=== PATIENT | male | born 1960 | race Caucasian/White ===

== ENCOUNTER → 2021-09-10 | Outpatient (CLI) | payer OTHER ==
--- NOTE | 2021-09-12 06:20 | PE ---
EXAMINATION TYPE: PET CT fusion skull to thigh DATE OF EXAM: 09/10/2021 COMPARISON: NONE HISTORY: Solitary pulmonary nodule TECHNIQUE: Following the intravenous administration of 12.1 mCi of F-18 FDG, whole body images are p erformed from the skull base to the midthigh. Images are reviewed on the computer in the coronal, ax ial, and sagittal planes. Reconstructed rotating images are created on independent workstation and r eviewed on the computer. A localization and attenuation correction CT is performed in conjunction w ith the PET scan. Blood glucose level equals 128. SCAN: Initial Scan FINDINGS: SKULL BASE AND NECK: No areas of abnormal hypermetabolic uptake. CHEST, MEDIASTINUM, AND HILAR REGION: There is 2.1 x 1.8 cm thick-walled cavitary lesion right suprah ilar level having abnormal hypermetabolic uptake, Max SUV is 4.82. No additional areas of abnormal hypermetabolic uptake. ABDOMEN AND PELVIS: No adrenal masses. Normal excretion. No areas of abnormal hypermetabolic uptake. OSSEOUS STRUCTURES: No areas of abnormal hypermetabolic uptake. OTHER CT: Moderate to severe mucosal thickening right maxillary sinus. Calcified right hilar and subc arinal lymph nodes. Calcifications throughout the spleen. Above Findings consistent with product of o ld granulomatous disease. Liver is diffusely low dense consistent with diffuse fatty infiltration. Mildly enlarged prostate con sistent with BPH. Moderate-size fat-containing left inguinal hernia. IMPRESSION: There is 2.1 cm hypermetabolic cavitary lesion, differential includes neoplasm. Other anca ologies not excluded. No suspicious adenopathy or metastatic disease seen.
== END | disposition home or self-care (01) ==
LOC: RADPETMAIN 09:00
PROVIDERS: ATTEND Internal Medicine
DX: R91.8 Other nonspecific abnormal finding of lung field (principal)
CPT/HCPCS: 78815; A9552

== ENCOUNTER → 2022-01-09 | Outpatient (CLI) | payer OTHER | END | disposition home or self-care (01) | LOC: LABWHC1 10:54 | PROVIDERS: ATTEND Internal Medicine Critical Care Medicine | DX: R91.8 Other nonspecific abnormal finding of lung field (principal) | CPT/HCPCS: 36415 ==

== ENCOUNTER 2022-01-19 11:33 | Day surgery (SDC) | payer OTHER ==
[~2022-01-19 11:33] MED LIST: ALBUTEROL NEB (CONC) 2.5 MG/0.5 ML INHALATION ONE; LIDOCAINE 2% (PF) 20 MG/ML 5 ML VIAL INHALATION ONE; LIDOCAINE VISCOUS 300 MG/15 ML CUP MUCOUS MEM ONE; SODIUM CHLORIDE 0.9% 1,000 ML IV SCH
--- NOTE | 2022-01-19 12:57 | CT ---
EXAMINATION TYPE: CT Chest elizabeth Talbot Protocol DATE OF EXAM: 01/19/2022 COMPARISON: 09/10/2021 HISTORY: Navigational bronchoscopy CT DLP: 907 mGycm Automated exposure control for dose reduction was used. FINDINGS: Limited exam is part of a navigational bronchoscopy preprocedural planning. 2.1 x 1.8 cm thick-walled cavitary lesion right suprahilar level is stable. Edematous changes are see n. There is a 6 mm nodule seen within the right upper lobe just posterior to the right hilum axial im age 24. Biapical pleural thickening is seen. There is no evidence of focal pneumonia or pleural effus ion. No pneumothorax. 4 mm calcified granuloma right lower lobe. Heart size is normal. Coronary artery calcification noted. Atherosclerotic change aorta with no evide nce of aneurysm. There is a pathologic-sized pretracheal lymph node on the right axial image 23 measu ring short axis I.4 cm. The calcified hilar and mediastinal lymph nodes incidentally noted. Hepatic steatosis suggested with evidence of hepatic and splenic granuloma. Minimal thickening to the anterior limb of the left adrenal gland nonspecific. Hypertrophic and degenerative changes of the sp ine. Chronic rib deformities are seen suggestive of remote trauma. IMPRESSION: 1. There is a stable 2.1 cm cavitary lesion of the right hilum. 6 mm nodule seen posteriorly within t he upper lobe on the right. Additionally there is pathologic right hilar adenopathy measuring short a xis of 1.4 cm. 2. coronary artery calcification correlate clinically. 3. COPD.
[2022-01-19] MEDS ORDERED: ROCURONIUM 10 MG/ML (5 ML VIAL) IV ONE (14:19)
[2022-01-19] MEDS ORDERED: fentaNYL (PF) 50 MCG/ML 2 ML AMP ONE (14:19)
[2022-01-19] MEDS ORDERED: MIDAZOLAM 2 MG/2 ML VIAL ONE (14:19)
[2022-01-19] MEDS ORDERED: LIDOCAINE 2% INJ 20 MG/ML (2 ML VIAL) ONE (14:19)
[2022-01-19] MEDS ORDERED: KETAMINE 10 MG/ML 20 ML VIAL ONE (14:19)
[2022-01-19] MEDS ORDERED: SUCCINYLCHOLINE CHLORIDE 200 MG/10 ML VIAL IV ONE (14:19)
[2022-01-19] MEDS ORDERED: PROPOFOL 10 MG/ML 20 ML VIAL IV ONE (14:19)
[2022-01-19] MEDS ORDERED: SODIUM CHLORIDE 0.9% 500 ML 500 ML IV ONE (15:30)
--- NOTE | 2022-01-19 15:34 | P.PCN ---
Date of Procedure: 01/19/22 Operative Findings: Preoperative Diagnosis: Right upper lobe lobe mass Postoperative Diagnosis: Right upper lobe mass Procedure(s) Performed: Flexible bronchoscopy navigation bronchoscopy Transbronchial biopsy of the right upper lobe mass, transbronchial brushing of the right upper lobe mass, transbronchial needle aspirate of the right upper lobe mass, bronchioloalveolar lavage of the right upper lobe Endobronchial ultrasound Anesthesia: GETA Operative Findings: Surgeon: Constantino Herndon MD Road Inspector #1: Adenike Juarez Estimated Blood Loss (ml): 0 Pathology: other Condition: stable Disposition: same day Operative Findings: the patient is a 61 -year-old male with a right upper lobe mass which was active on a PET/CT. The right upper lobe mass causing narrowing of the right upper lobe bronchus and there was some central cavitation based on the CAT scan and the PET/CT. The patient is scheduled to undergo navigation bronchoscopy and endobronchial ultrasound to evaluate mediastinal lymph nodes. A CAT scan of the chest was done for mapping purposes using the [employer] protocol. The images was uploaded into the system and the right lower lobe mass was identified. Appropriate mapping was done. All of this information was then transferred to a USB and later on into the [employer] navigation tower. After obtaining the consent the patient was taken to the OR suite he was intubated and put on MV by anesthesia then the scope was advanced to the ET tube until the Trachea was seen and it was normal and then the eliud appears normal then the scope advanced to the left main and MAX LB1-LB3 were seen and no endobronchial lesions were seen then the scope advanced to the lingula and the LB4 and LB5 were seen and no endobronchial lesions were seen the scope retracted and advanced to the left lower lobes LB6 to LB12 were seen one by one and no endobronchial lesions, then the scope was retracted back to the eliud and advanced to the Right main in the right mainstem bronchus was within normal limits. Immediately, at the origin of the right upper lobe bronchus, there was significant narrowing of the right upper lobe bronchus along with endobronchial tumor growing circumferentially around the airway more so in the posterior lateral wall. The mucosa was friable and erythematous and irregular and it had vascular structures were easily bleeding along its surface. The various segments of the right upper lobe were not accurately visualized. I was not able to see the apical anterior and the posterior segment of the right upper lobe. There was considerable amount of narrowing due to endobronchial tumor growing circumferentially.The scope then retracted and advanced to the BI and RML RB4 and RB5 were seen and no endobronchial lesions were seen then it was retracted and advanced to the RLL RB6 to RB12 were seen one by one and no endobronchial lesions. There was extensive mucosal irregularities and calcification of the cartilaginous rings causing indentation and ridges with the airways. . The anatomy was distoreted, yet were were able ti identify all of the segments and the subsegments on both sides. Then EBUS was used and the lymph nodes were examined. Direct measurement of the mediastinal lymph nodes revealed no significant mediastinal lymphadenopathy. The subcarinal lymph node was less than 5 mm in size. No paratracheal station 4R, 10 R, 11 R lymph nodes were seen. As such, mediastinal lymph nodes were not sampled. . Using navigation guidance, the flexible bronchoscope was advanced to the right upper lobe. Transbronchial biopsy of the right upper lobe mass was done in multiple passes were obtained. Following that, performed transbronchial brushing of the right upper lobe mass using a triple brush, transbronchial needle aspirate using a 21-gauge needle of th right upper lobe mass was done. No complications and there was no bleeeding. following that, a bronchial lavage of the right upper lobe was done. A total of 60 mL of fluid was infused and 15 mL was suctioned back without any complication. Aspirate was bloody. The procedure was terminated. The bronchoscope was removed. The patient was extubated and following that the patient was transferred to recovery in a stable condition. No bifid, occasional bleeding. A chest x-ray to follow and if no complications the patient will be discharged home.
[2022-01-19 15:44] VITALS: RESP 16; TEMP 97.8
[2022-01-19 16:16] VITALS: PULSE 64
[2022-01-19 16:27] VITALS: BP 113/71
[2022-01-20 01:19] LABS: Appearance,BF Bloody
== END 2022-01-19 16:35 | disposition home or self-care (01) ==
LOC: ORWHC2ENDO 11:33
PROVIDERS: ATTEND Internal Medicine Critical Care Medicine
DX: R91.8 Other nonspecific abnormal finding of lung field (principal); I10 Essential (primary) hypertension; J44.9 Chronic obstructive pulmonary disease, unspecified; F12.90 Cannabis use, unspecified, uncomplicated; F17.200 Nicotine dependence, unspecified, uncomplicated; K21.9 Gastro-esophageal reflux disease without esophagitis; Z79.51 Long term (current) use of inhaled steroids; Z79.899 Other long term (current) drug therapy
CPT/HCPCS: 87798 ×3; 87496; 87498; 87529; 88104; 88108; 88305; 88173; 89050; 88342; 87252; 87502; 87634; 88341; 87070; 87205; 87116; 87102; 87206; 71250; 31629; 31625; 31624; 31627; 31652; J2250; J0330; J3010; J2704; J2001; 31623

== ENCOUNTER → 2022-02-03 | Outpatient (CLI) | payer OTHER ==
--- NOTE | 2022-02-05 00:16 | PE ---
EXAMINATION TYPE: PET CT fusion skull to thigh DATE OF EXAM: 02/03/2022 CLINICAL INDICATION:Male, 61 years old with history of R91.1; TECHNIQUE: Following the intravenous administration of 13.0 mCi of F-18 FDG, whole body images are performed from the skull base to the midthigh. Images are reviewed on the computer in the coronal, a xial, and sagittal planes. Reconstructed rotating images are created on independent workstation and reviewed on the computer. A non-contrast CT is performed in conjunction with the PET scan. Glucose level 101 mg/dL COMPARISON: CT 01/19/2022, CT 12/21/2021, PET/CT 09/10/2021, FINDINGS: Mediastinal SUV mean is 1.6. Hepatic parenchyma SUV mean is 1.9. SKULL BASE AND NECK: No suspicious radiotracer activity. CHEST, MEDIASTINUM, AND HILAR REGION: * Similar morphology to the cavitating right perihilar lesion when compared to prior on 12/21/2021. T his has max SUV 7.2, previously 4.8. Area measures roughly 2.8 x 2.4 cm given limitations of noncontr ast technique. * No suspicious metabolic activity within the mediastinal lymph nodes. ABDOMEN AND PELVIS: No suspicious radiotracer activity. OSSEOUS STRUCTURES: No suspicious radiotracer activity. OTHER CT: Atherosclerosis of the arterial vasculature including the carotid bifurcations and coronary arteries. Heart is mildly enlarged for size. Hepatic steatosis. Calcified granulomas within the sple en. IMPRESSION: Progressive disease with increasing metabolic activity of the right perihilar cavitating lesion zoë red to 09/10/2021, there is a similar morphology to most recent prior 12/21/2021 CT.
== END | disposition home or self-care (01) ==
LOC: RADPETMAIN 12:34
PROVIDERS: ATTEND Internal Medicine Critical Care Medicine
DX: R91.1 Solitary pulmonary nodule (principal)
CPT/HCPCS: 78815; A9552

== ENCOUNTER → 2022-02-21 | Outpatient (CLI) | payer OTHER ==
[2022-02-21 12:49] LABS: Partial Thromboplastin Time 27.5 sec (22.0-30.0); Prothrombin Time 10.5 sec (9.0-12.0)
[2022-02-21 18:39] LABS: Basophils # (A) 0.05 X 10*3/uL (0.00-0.10); Basophils % (A) 0.6 %; Eosinophils # (A) 0.03 X 10*3/uL (0.04-0.35); Eosinophils % (A) 0.4 %; HCT 46.3 % (39.6-50.0); HGB 15.7 g/dL (13.0-17.0); Immature Grans, Automated 0.3 %; Lymphocytes # (A) 1.69 X 10*3/uL (0.90-5.00); Lymphocytes % (A) 21.2 %; MCH 33.3 pg (27.0-32.0); MCHC 33.9 g/dL (32.0-37.0); MCV 98.3 fL (80.0-97.0); Mean Platelet Volume 9.1 fL (9.5-12.2); Monocytes # (A) 0.71 X 10*3/uL (0.20-1.00); Monocytes % (A) 8.9 %; NRBC Per 100 WBC 0 /100 WBCS (0.0-0.0); Neutrophils # (A) 5.47 X 10*3/uL (1.80-7.70); Neutrophils % (A) 68.6 %; Platelet Count 247 X 10*3/uL (140-440); RBC 4.71 X 10*6/uL (4.40-5.60); RDW 12.2 % (11.5-14.5); WBC 7.97 X 10*3/uL (4.50-10.00)
[2022-02-21 20:05] LABS: African American GFR (CKD) 111.7 (60.0-200.0); Anion Gap 13.5 mmol/L (10.00-18.00); Blood Urea Nitrogen 9.3 mg/dL (9.0-27.0); Carbon Dioxide 23.5 mmol/L (20.0-27.5); Non-African American GFR(CKD) 96.4 (60.0-200.0); Potassium 4.2 mmol/L (3.5-5.5)
== END | disposition home or self-care (01) ==
LOC: LABPAT 10:53
PROVIDERS: ATTEND Thoracic Surgery (Cardiothoracic Vascular Surgery)
DX: Z01.818 Encounter for other preprocedural examination (principal); C34.00 Malignant neoplasm of unspecified main bronchus; I51.7 Cardiomegaly; R53.83 Other fatigue; R58 Hemorrhage, not elsewhere classified; R94.31 Abnormal electrocardiogram [ECG] [EKG]; Z79.899 Other long term (current) drug therapy
CPT/HCPCS: 80051; 82565; 82947; 84520; 85025; 85610; 85730; 93005

== ENCOUNTER 2022-02-23 06:03 | Inpatient (IN) | payer OTHER ==
[2022-02-23] MEDS ORDERED: DEXAMETHASONE SOD PHOSPHATE 4 MG/ML 1 ML VIAL IV ONE (06:11)
[2022-02-23] MEDS ORDERED: LIDOCAINE 1% (10MG/ML) FOR IV START INTRADERMA PRN (06:11)
[2022-02-23] MEDS ORDERED: ONDANSETRON 4 MG/2 ML VIAL IVP ONE (06:11)
[2022-02-23] MEDS: LACTATED RINGERS 1,000 ML IV SCH (06:35)
[2022-02-23] MEDS ORDERED: HYDROmorphone 0.5 MG/0.5 ML SYRINGE IVP PRN (07:00)
[2022-02-23] MEDS ORDERED: MIDAZOLAM 2 MG/2 ML VIAL IV ONE (07:18)
[2022-02-23] MEDS ORDERED: WATER FOR INJECTION, STERILE 10 ML VIAL IV ONE (08:00)
[2022-02-23] MEDS ORDERED: ROPIVACAINE 5 MG/ML 30 ML VIAL ONE (08:00)
[2022-02-23] MEDS ORDERED: ROCURONIUM 10 MG/ML (5 ML VIAL) IV ONE (08:00)
[2022-02-23] MEDS ORDERED: LIDOCAINE 2% INJ 20 MG/ML (2 ML VIAL) ONE (08:00)
[2022-02-23] MEDS ORDERED: KETAMINE 10 MG/ML 20 ML VIAL ONE (08:00)
[2022-02-23] MEDS ORDERED: SODIUM CHLORIDE 0.9% (PF) 10 ML VIAL ONE (08:00)
[2022-02-23] MEDS ORDERED: fentaNYL (PF) 50 MCG/ML 2 ML AMP ONE (08:00)
[2022-02-23] MEDS ORDERED: GLYCOPYRROLATE 0.2 MG/ML 2 ML VIAL ONE (08:00)
[2022-02-23] MEDS ORDERED: ePHEDrine 50 MG/ML 1 ML VIAL ONE (08:00)
[2022-02-23] MEDS ORDERED: NEOSTIGMINE 1 MG/ML 10 ML VIAL ONE (08:00)
[2022-02-23] MEDS ORDERED: PROPOFOL 10 MG/ML 20 ML VIAL IV ONE (08:00)
[2022-02-23] MEDS ORDERED: SUCCINYLCHOLINE CHLORIDE 200 MG/10 ML VIAL IV ONE (08:00)
[2022-02-23] MEDS ORDERED: DEXAMETHASONE SOD PHOSPHATE 4 MG/ML 1 ML VIAL ONE (08:00)
[2022-02-23] MEDS ORDERED: PHENYLEPHRINE-0.9% NACL SYG 1,000 MCG/10 ML SYRINGE ONE (08:00)
[2022-02-23] MEDS ORDERED: HYDROmorphone (PF) 1 MG/ML ONE (08:00)
[2022-02-23] MEDS ORDERED: LACTATED RINGERS 1,000 ML IV ONE (09:50)
--- NOTE | 2022-02-23 10:45 | P.ANPRN ---
Procedure Note - Anesthesia - Nerve Block Performed Right Erector Spinae Single Time Out Performed: Yes Date of Procedure: 02/23/22 Procedure Start Time: :18 Procedure Stop Time: : Location of Patient: PreOp Indication: Acute Post-Operative Pain, Requested by Surgeon Sedation Type: Sedate with meaningful contact maintained Preparation: Sterile Prep Position: Prone Needle Types: Pajunk Needle Gauge: 21 Ultrasound used to visualize needle placement: Yes Ultrasound used to observe medication spread: Yes Blood Aspirated: No Pain Paresthesia on Injection Noted: No Resistance on Injection: Normal Image Stored and Saved: Yes Events: Uneventful and Well Tolerated (Ropivacaine 0.5% 15 mL plus normal saline 10 mL plus dexamethasone 4 mg)
--- NOTE | 2022-02-23 11:43 | P.OP ---
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 Lymph nodes stations R4, R5, R8, R 10, R 11, level 7.) Condition: stable Disposition: PACU Indications for Procedure: 62-year-old male with documented squamous cell carcinoma of the right upper lobe. He is [place] extensive workup in [place] but never got referred for surgery. This included PET scan and he missed. These demonstrated fairly central right upper lobe tumor with involvement of the [place] right upper lobe bronchus and possible involvement of the right mainstem bronchus. Lymph nodes were negative by ZEENAT and estefanía. Patient came to see us as a second opinion and was scheduled for surgery. He is ECOG level is 0. Operative Findings: On bronchoscopy didn't appear to extend to the proximal right upper lobe bronchus but did not grossly involve the mainstem bronchus. At exploration, the tumor was densely adherent and possibly infiltrative of the azygos vein. It was fairly central, sitting just above the hilum. We were able to dissected out the hilar structures to would from the upper lobe, i.e. the branches of the pulmonary artery, pulmonary vein and the bronchus, without disrupting the primary tumor capsule. Dissection was quite challenging due to the presence of chronic anthracotic adenopathy with some calcified anthracotic lymph nodes area tissue planes were fairly dense but ultimately opened without difficulty. Pulmonary artery and vein branches were taken first and the bronchus was taken last. We divided the bronchus right on the right mainstem bronchus. Frozen section of the bronchial margin came back negative. Neuro able to easily and successfully close the resulting bronchial defect with interrupted sutures with no evidence of air leak on completion. Description of Procedure: Patient was brought to the operating room and placed supine on the operating table. General anesthesia was induced. He was intubated with a double-lumen endotracheal tube. This was positioned with fiberoptic bronchoscopy. Fiberoptic bronchoscopy demonstrated narrowing of the right upper lobe bronchus with obvious tumor involvement of the proximal right upper lobe bronchus but no obvious tumor involvement of the right mainstem bronchus. We recognized that the margin here was going to be fairly close and it was felt best to proceed with open thoracotomy Patient was turned in the left lateral decubitus position and appropriately positioned. The right chest was sterilely prepped and draped. Posterior lateral thoracotomy incision was performed. Latissimus dorsi muscle was divided. The serratus muscle was mobilized and retracted anteriorly. Ribs were counted and the chest was entered in the fifth intercostal space. The intercostals were undercut anteriorly and posteriorly to allow easy spreading of the ribs. The chest cavity was explored. There were some mild adhesions present within the chest cavity these were taken down with electrocautery. The tumor was present just above the hilum. Appeared to be densely adherent and possibly invasive of the azygos vein. Was decided to sacrifice the azygos vein and resected en bloc with the specimen. The azygos vein was dissected out proximally and distally and doubly ligated and divided. We now took down the inferior pulmonary ligament and dissected up removing R8 and level VII lymph nodes. We dissected out the subcarinal region fairly extensively. Dissection was carried up onto the right mainstem bronchus and the bifurcation between the upper lobe bronchus and bronchus intermedius was dissected out. R 11 lymph nodes were sent for permanent section from this region. We now addressed the fissure. We are able to dissected at the midpoint of the fissure where the middle lobe upper lobe and lower lobe all be. We were able to dissected out onto the pulmonary artery here and connected to the dissection we made posteriorly. This allowed us to open the greater fissure posteriorly with several firings of Endo SUMAYA purple stapler. We now directed our dissection anteriorly. Branches of the pulmonary vein draining the right upper lobe were identified dissected out and ligated and divided with a Endo SUMAYA vascular stapler. Lymph nodes in this region were resected and sent as R 11 lymph nodes. As we dissected more superiorly we encountered both R 10 and R5 lymph nodes and resected these and sent for permanent section. This brought our dissection onto the pulmonary artery. The truncus anteriormost cyst was dissected out and ligated and divided with a robotic vascular stapler. We were now able to complete the fissure between the upper and middle lobe anteriorly with multiple firings of Endo SUMAYA stapler. The final remaining branch of the pulmonary artery to the upper lobe was now visible. Dissection here was very difficult and we proceeded very carefully to avoid disruption(branch. We were able to obtain adequate length to doubly ligated and divided. We now completed our dissection around the right upper lobe bronchus resecting the majority the lymph nodes en bloc with the specimen. A few lymph nodes were sent as R 11 lymph nodes from this region. We now divided the right upper lobe bronchus directly from the right mainstem bronchus with sharp dissection. The lobectomy specimen was removed and sent for frozen section of the bronchial margin. The resulting defect in the right mainstem bronchus was closed with interrupted 4-0 Vicryl sutures. The R4 lymph nodes were dissected out and sent for permanent section. Following this we irrigated the chest with warm water and insufflated the lung under water and there was no evidence of air leak from the bronchial stump. Frozen section returned negative. At that point it was felt there was no reason to proceed to sleeve resection as we had a negative margin. Cryoablation of the intercostal nerves at levels 3, 4, 5, 6, and 7 was performed posteriorly with CAPNIA Endo ice system. 28-Serbian chest tube was placed through separate stab incision and this positioned posterior apically. It was secured with 0 Ethibond suture. We again irrigated out the chest and reinflated the lung. The ribs were reapproximated with #1 Vicryl. Muscle layers with 0 Vicryl. Subcutaneous tissues were reapproximated with 2-0 Vicryl. Skin was closed with 3-0 Vicryl. Skin glue and dry sterile dressing were applied. Patient was turned supine and extubated and transferred to recovery in stable condition. Completion bronchoscopy was performed and demonstrated excellent closure of the mainstem bronchus with no evidence of tissue at that level.
--- NOTE | 2022-02-23 12:17 | XR ---
EXAMINATION TYPE: XR chest 1V portable DATE OF EXAM: 02/23/2022 CLINICAL HISTORY: Partial right-sided pneumonectomy for lung cancer. TECHNIQUE: Single AP portable frontal view of the chest is obtained. COMPARISON: Chest CT January 19, 2022 FINDINGS: Moderate underlying emphysematous change is redemonstrated. There is new right apical ches t tube with adjacent subcutaneous emphysema and tiny superior lateral pneumothorax. Slight right-side d volume loss with right-sided mediastinal shift is seen. Left lung remains clear. Cardiac silhouette size is stable and within normal limits. And osseous structures are intact. IMPRESSION: As above.
[2022-02-23] MEDS ORDERED: ACETAMINOPHEN TAB 325 MG TAB PO PRN (12:24)
[2022-02-23] MEDS ORDERED: bisacodyL 10 MG SUPP RECTAL PRN (12:24)
[2022-02-23] MEDS ORDERED: DEXTROSE 5%-0.45% NACL 1,000 ML IV SCH (12:24)
[2022-02-23] MEDS ORDERED: ONDANSETRON 4 MG/2 ML VIAL IVP PRN (12:24)
[2022-02-23] MEDS ORDERED: IPRATROPIUM-ALBUTEROL 3 ML NEB IH PRN (12:24)
[2022-02-23] MEDS: traMADol 50 MG TAB PO SCH ×3 (13:18→23:46)
[2022-02-23 13:23] LABS: Glucose,Whole Blood 164 mg/dL (70-110)
--- NOTE | 2022-02-23 14:39 | P.CNPUL ---
History of Present Illness Consult date: 02/23/22 Requesting physician: González Clifton Reason for consult: abnormal CXR/CT Chief complaint: Right upper lobe non-small cell carcinoma History of present illness: This is a very pleasant 62-year-old male patient with a history of chronic tobacco dependence, moderate obstructive pulmonary disease with an FEV1 value 60% of predicted, hypertension who had undergone bronchoscopy and biopsy of a right upper lobe cavitary lesion on 01/19/[address] Herndon. This was found to be positive for non-small cell carcinoma with poorly differentiated invasive squamous cell carcinoma. PET scan did not reveal any areas of suspicious metabolic activity within the mediastinal lymph nodes. He was brought in today electively for a fiberoptic bronchoscopy, right thoracotomy, right upper lobectomy, mediastinal lymph node dissection, cryoablation intercostal nerve as performed by Dr. Clifton. He is seen today postoperatively in the intensive care unit. He is awake and alert in no acute distress. He is maintaining good O2 saturations in the mid 90s on 2 L/m per nasal cannula. Afebrile. Hemodynamically stable. Chest x-ray reveals moderate underlying emphysematous changes. There is a new right apical chest tube with adjacent subcutaneous emphysema and tiny superior lateral pneumothorax. Slight right-sided volume loss with right-sided mediastinal shift. Left lung remains clear. Chest tube was placed to wall suction. Minimal leak noted. Review of Systems REVIEW OF SYSTEMS: CONSTITUTIONAL: Positive for a 5-6 pound weight loss in the past 2 months. EYES: Denies change in vision. EARS, NOSE, MOUTH, THROAT: Denies headaches, denies sore throat. CARDIOVASCULAR: Right-sided surgical site pain. RESPIRATORY: Denies shortness of breath, cough, congestion or hemoptysis. GASTROINTESTINAL: Denies change in appetite, denies abdominal pain GENITOURINARY: Denies hematuria, denies infections. MUSKULOSKELETAL: Denies pain, denies swelling. INTEGUMENTARY: Denies rash, denies eczema. NEUROLOGICAL: Denies recent memory loss, no recent seizure activity. PSYCHIATRIC: Denies anxiety, denies depression. HEMATOLOGIC/LYMPHATIC: Denies anemia, denies enlarged lymph nodes. Past Medical History Past Medical History: Cancer, COPD, GERD/Reflux, Hypertension, Osteoarthritis (OA), Pneumonia Additional Past Medical History / Comment(s): [address] showed lesion to RUL. hx pneumonia 04/2021 and bronchitis 2021. aspirated a piece of corn coughed out. culture of lung ( bronchoscopy 2021) had bacterial infection? pseudomonas tx with augmentin, recent dx. lung cancer History of Any Multi-Drug Resistant Organisms: None Reported Additional Past Surgical History / Comment(s): bronchoscopy in summer in [place], & recent bronch. @MPH, cataracts bilaterally with lenses Past Anesthesia/Blood Transfusion Reactions: No Reported Reaction Additional Past Anesthesia/Blood Transfusion Reaction / Comment(s): no hx. blood transfusions Smoking Status: Current every day smoker - Past Family History Mother Additional Family Medical History / Comment(s): ovarian cancer Father Family Medical History: Cancer Additional Family Medical History / Comment(s): lung cancer Medications and Allergies Home Medications Medication Instructions Recorded Confirmed Type Acetaminophen [Tylenol Arthritis] 650 mg PO DIRECTED PRN 01/18/22 02/21/22 History Albuterol Inhaler [Ventolin Hfa 2 puff INHALATION Q6H PRN 01/18/22 02/21/22 History Inhaler] Lisinopril-Hctz 10-12.5 mg 1 tab PO DAILY 01/18/22 02/21/22 History [Zestoretic 10-12.5] Multivitamins, Thera [Multivitamin 1 tab PO DAILY 01/18/22 02/21/22 History (formulary)] Allergies Allergy/AdvReac Type Severity Reaction Status Date / Time levofloxacin [From Levaquin] Allergy Swelling Verified 02/21/22 10:57 Physical Exam Vitals: Vital Signs Temp Pulse Pulse Resp BP BP BP 02/23/22 14:00 73 20 02/23/22 13:45 76 19 02/23/22 13:30 78 16 02/23/22 13:15 82 17 02/23/22 13:00 73 18 02/23/22 12:45 75 17 119/83 02/23/22 12:19 80 16 158/79 111/75 02/23/22 12:06 83 16 146/70 95/53 02/23/22 11:51 78 16 110/63 02/23/22 11:36 96.8 F L 76 16 115/73 02/23/22 07:35 69 16 129/87 02/23/22 06:35 97.5 F L 74 16 119/84 Pulse Ox 02/23/22 14:00 97 02/23/22 13:45 97 02/23/22 13:30 95 02/23/22 13:15 96 02/23/22 13:00 95 02/23/22 12:45 87 L 02/23/22 12:19 93 L 02/23/22 12:06 95 02/23/22 11:51 96 02/23/22 11:36 100 02/23/22 07:35 99 02/23/22 06:35 96 Intake and Output 02/22/22 02/23/22 02/23/22 22:59 06:59 14:59 Intake Total 600 1550 Output Total 625 Balance 600 925 Intake: IV 600 1450 Intake, IV Titration 100 Amount Dextrose 5%-0.45% NaCl 1, 100 000 ml @ 50 mls/hr IV . Q20H [facility] Rx#:[id number] Output: Chest Tube Drainage 190 Right Chest Tube 190 Urine 235 Estimated Blood Loss 200 Other: Weight 68.9 kg ABP, PAP, CO, CI - Last 8 Hours Arterial Blood Pressure 121/75 Arterial Blood Pressure 120/63 Arterial Blood Pressure 119/61 Arterial Blood Pressure 119/62 Arterial Blood Pressure 125/62 Arterial Blood Pressure 128/61 GENERAL EXAM: Alert, very pleasant 62-year-old male patient, on 2 L nasal cannula, fairly comfortable in no apparent distress. HEAD: Normocephalic. EYES: Normal reaction of pupils, equal size. NOSE: Clear with pink turbinates. THROAT: No erythema or exudates. NECK: No masses, no JVD. CHEST: No chest wall deformity. Right-sided chest tube secured in place to Pn eumo vac and wall suction. Tiny leak. LUNGS: Equal air entry with no crackles, wheeze, rhonchi or dullness. CVS: S1 and S2 normal with no audible murmur, regular rhythm. ABDOMEN: No hepatosplenomegaly, normal bowel sounds, no guarding or rigidity. SPINE: No scoliosis or deformity SKIN: No rashes CENTRAL NERVOUS SYSTEM: No focal deficits, tone is normal in all 4 extremities. EXTREMITIES: There is no peripheral edema. No clubbing, no cyanosis. Peripheral pulses are intact. Results - Laboratory Findings Abnormal lab findings: Abnormal Labs 02/23/22 13:22 POC Glucose (mg/dL) 164 H - Diagnostic Findings Chest x-ray: image reviewed Assessment and Plan Assessment: Right upper lobe squamous cell carcinoma diagnosed 01/19/2022. Status post fiberoptic bronchoscopy, right thoracotomy, right upper lobectomy, mediastinal lymph node dissection, radioablation of the intercostal nerves. Postoperative day #0. Moderate chronic obstructive pulmonary disease with an FEV1 value 60% of predicted Chronic tobacco dependence of greater than 40 years. Hypertension Plan: The patient was seen and evaluated Chest x-ray, medications reviewed Continued on cefazolin, bronchodilators Heparin for DVT prophylaxis Add incentive spirometer and encourage cough and deep breathing exercises Follow-up chest x-ray in a.m. We'll continue to follow and make further recommendations based on his clinical status I have personally seen and examined the patient, performed the documentation and the assessment and plan as written. Number of minutes spent on the visit: 20.
[2022-02-23] MEDS: KETOROLAC 15 MG/ML 1 ML VIAL IVP SCH ×2 (14:56→20:28)
[2022-02-23] MEDS: IPRATROPIUM-ALBUTEROL 3 ML NEB IH SCH ×3 (15:06→20:05)
[2022-02-23] MEDS: HEPARIN SODIUM,PORCINE/PF 5,000 UNIT/0.5 ML SYRINGE SQ SCH ×2 (15:42→23:46)
[2022-02-23] MEDS: SENNOSIDES-DOCUSATE SODIUM 1 EACH TAB PO SCH (20:29)
--- NOTE | 2022-02-23 21:22 | P.ANPRN ---
Procedure Note - Anesthesia - Invasive Line Left Arterial Line Time Out Performed: Yes Date of Procedure: 02/23/22 Time of Procedure: 07:29 Location of Patient: PreOp Preparation: Sterile Prep, Sterile Dressing Arterial Line Location: Radial Ultrasound Used: No Purpose - Visualization and Identification of Vasculature: No Narrative: Central line placement per sterile protocol utilized.
[2022-02-24] MEDS: KETOROLAC 15 MG/ML 1 ML VIAL IVP SCH ×4 (03:55→20:38)
[2022-02-24 05:46] LABS: Basophils % (A) 0 %; Eosinophils # (A) 0.1 k/uL (0-0.7); Eosinophils % (A) 1 %; HCT 36.3 % (39.0-53.0); HGB 12.6 gm/dL (13.0-17.5); Lymphocytes # (A) 2.1 k/uL (1.0-4.8); Lymphocytes % (A) 20 %; MCH 33.9 pg (25.0-35.0); MCHC 34.8 g/dL (31.0-37.0); MCV 97.4 fL (80.0-100.0); Mean Platelet Volume 7.2; Monocytes # (A) 0.6 k/uL (0-1.0); Monocytes % (A) 6 %; Neutrophils # (A) 7.7 k/uL (1.3-7.7); Neutrophils % (A) 72 %; Platelet Count 192 k/uL (150-450); RBC 3.73 m/uL (4.30-5.90); WBC 10.8 k/uL (3.8-10.6)
[2022-02-24 06:04] LABS: African American GFR (CKD) >90 (>60 ml/min/1.73 sqM); Anion Gap 3 mmol/L; Blood Urea Nitrogen 15 mg/dL (9-20); Carbon Dioxide 24 mmol/L (22-30); Chloride 101 mmol/L (98-107); Glucose 104 mg/dL (74-99); Non-African American GFR(CKD) >90 (>60 ml/min/1.73 sqM); Potassium 4.2 mmol/L (3.5-5.1); Sodium 128 mmol/L (137-145)
[2022-02-24] MEDS: traMADol 50 MG TAB PO SCH ×4 (06:15→23:38)
[2022-02-24] MEDS: PANTOPRAZOLE 40 MG TABLET PO SCH (06:56)
--- NOTE | 2022-02-24 07:19 | XR ---
EXAMINATION TYPE: XR chest 1V DATE OF EXAM: 02/24/2022 6:06 AM COMPARISON: Chest radiographs from 02/23/2022 TECHNIQUE: XR chest 1V Frontal view of the chest. CLINICAL INDICATION:Male, 62 years old with history of post lobectomy; FINDINGS: Lungs/Pleura: Moderate underlying emphysematous change redemonstrated. Stable trace superior lateral right pneumothorax. Pulmonary vascularity: Unremarkable. Heart/mediastinum: Cardiomediastinal silhouette is stable in size and shifted to the right again due to volume loss of the lung. Musculoskeletal: No acute osseous pathology. Other findings: Redemonstration of right lateral and chest subcutaneous emphysema. Lines/Tubes: Redemonstration of right thoracotomy tube directed towards the right medial apex. IMPRESSION: Overall similar examination with stable right superior lateral apical pneumothorax with thoracostomy tube in place.
[2022-02-24] MEDS: IPRATROPIUM-ALBUTEROL 3 ML NEB IH SCH ×4 (07:21→20:08)
--- NOTE | 2022-02-24 07:53 | P.PN ---
Subjective Progress Note Date: 02/24/22 Principal diagnosis: Squamous cell carcinoma right upper lobe. Previous medical history of hypertension, current tobacco dependence, mild COPD, daily marijuana use, social EtOH, and family history of cancer POD #1 fiberoptic bronchoscopy, right thoracotomy, right upper lobectomy, mediastinal lymph node dissection, cryoablation of the intercostal nerves The patient was seen and examined this morning sitting up in bed in the intensive care unit in no acute distress. States his pain is well controlled on current medication regimen, denies significant shortness of breath. Right pleural chest tube present to continuous wall suction without any air leak present this morning. Patient has been in and out of bed and ambulatory in the room without difficulty. Remains in sinus rhythm, currently on room air with oxygen saturation in the low to mid 90s, able to achieve 1500 mL on his incentive spirometry. No other new concerns. Objective - Vital Signs Vital signs: Vital Signs Temp 98.4 F 02/24/22 04:00 Pulse 69 02/24/22 07:00 Resp 21 02/24/22 07:00 BP 105/74 02/24/22 07:00 Pulse Ox 93 L 02/24/22 07:00 FiO2 Intake & Output 02/23/22 02/24/22 02/24/22 18:59 06:59 18:59 Intake Total 1750 600 50 Output Total 825 650 40 Balance 925 -50 10 Weight 73.6 kg Intake: IV 1450 550 50 Dextrose 5%-0.45% NaCl 1, 550 50 000 ml @ 50 mls/hr IV . Q20H [facility] Rx#:[id number] Intake, IV Titration 300 50 Amount Dextrose 5%-0.45% NaCl 1, 300 50 000 ml @ 50 mls/hr IV . Q20H [facility] Rx#:[id number] Output: Chest Tube Drainage 290 200 40 Right Chest Tube 290 200 40 Urine 335 450 Estimated Blood Loss 200 Other: Voiding Method Indwelling Catheter Urinal ABP, PAP, CO, CI - Last Documented Arterial Blood Pressure 96/57 - Exam CONSTITUTIONAL: Appears comfortable, cooperative, no acute distress RESPIRATORY: Lungs sounds diminished bilaterally. Respirations even, nonlabored. Currently on room air with oxygen saturation 93%. Able to achieve 1500 mL on incentive spirometry. Strong cough. CARDIOVASCULAR: S1, S2 present. Regular rate and rhythm, sinus rhythm on telemetry. Palpable peripheral pulses bilaterally. No edema present. No calf pain or tenderness noted. SCDs present. GASTROINTESTINAL: Abdomen soft, nontender, nondistended. Active bowel sounds present 4 quadrants. Tolerating diet. GENITOURINARY: Continues to void clear, yellow urine INTEGUMENTARY: Skin is warm and dry with evidence of good perfusion. Thoracic incision well approximated and covered with dry intact dressing. NEUROLOGIC: Cranial nerves II through XII intact MUSKULOSKELETAL: Able to move all extremities, strength equal bilaterally, gait normal PSYCHIATRIC: Alert and oriented to person place and time, appropriate affect, intact judgment and insight INVASIVE LINES AND TUBES: Right pleural chest tube present and connected to wall suction, no air leak present, 140 mL serosanguineous drainage overnight, 500 mL since surgery - Allied health notes Allied health notes reviewed: nursing - Labs CBC & Chem 7: 02/24/22 05:16 02/24/22 05:16 Labs: Abnormal Lab Results - Last 24 Hours (Table) 02/23/22 02/24/22 02/24/22 Range/Units 13:22 05:16 05:16 WBC 10.8 H (3.8-10.6) k/uL RBC 3.73 L (4.30-5.90) m/uL Hgb 12.6 L (13.0-17.5) gm/dL Hct 36.3 L (39.0-53.0) % Sodium 128 L (137-145) mmol/L Glucose 104 H (74-99) mg/dL POC Glucose (mg/dL) 164 H (70-110) mg/dL Calcium 8.0 L (8.4-10.2) mg/dL - Imaging and Cardiology Chest x-ray: report reviewed, image reviewed Assessment and Plan Assessment: 1. Right upper lobe tumor, positive for squamous cell carcinoma on EBUS, status post right upper lobectomy, final surgical pathology pending 2. History of hypertension 3. Current tobacco dependence, down to half to one pack per day, previously 2 packs per day for 40 years 4. Mild COPD, preoperative FEV1 64% of predicted post bronchodilator with DLCO 50% of predicted 5. Daily marijuana use 6. Social EtOH, denies history of withdrawal 7. Family history of cancer Plan: 1. Chest tube placed to waterseal, we'll continue to monitor 2. Encourage incentive spirometry use 10 times every hour while awake. Bronchodilators per pulmonology 3. Increase activity, ambulate as tolerated 4. Will monitor daily labs and chest x-rays 5. GI/DVT prophylaxis 6. Will monitor for final surgical pathology 7. Continue pain medication per current regimen 8. Transfer orders placed for 3 S. cardiac stepdown unit, may transfer when bed available 9. More recommendations to follow
[2022-02-24] MEDS: MULTIVITAMINS, THERA 1 EACH TAB PO SCH (08:21)
[2022-02-24] MEDS: LISINOPRIL-HCTZ 10-12.5 MG 1 EACH TAB PO SCH (08:21)
[2022-02-24] MEDS: HEPARIN SODIUM,PORCINE/PF 5,000 UNIT/0.5 ML SYRINGE SQ SCH ×3 (08:22→23:38)
--- NOTE | 2022-02-24 11:21 | P.PN ---
Subjective Progress Note Date: 02/24/22 Principal diagnosis: Status post fiberoptic bronchoscopy, right thoracotomy, right upper lobectomy, mediastinal lymph node dissection, cryoablation of the intercostal nerves, squamous cell carcinoma right upper lobe This is a very pleasant 62-year-old male patient with a history of chronic tobacco dependence, moderate obstructive pulmonary disease with an FEV1 value 60% of predicted, hypertension who had undergone bronchoscopy and biopsy of a right upper lobe cavitary lesion on 01/19/[address] Herndon. This was found to be positive for non-small cell carcinoma with poorly differentiated invasive squamous cell carcinoma. PET scan did not reveal any areas of suspicious metabolic activity within the mediastinal lymph nodes. He was brought in today electively for a fiberoptic bronchoscopy, right thoracotomy, right upper lobectomy, mediastinal lymph node dissection, cryoablation intercostal nerve as performed by Dr. Clifton. He is seen today postoperatively in the intensive care unit. He is awake and alert in no acute distress. He is maintaining good O2 saturations in the mid 90s on 2 L/m per nasal cannula. Afebrile. Hemodynamically stable. Chest x-ray reveals moderate underlying emphysematous changes. There is a new right apical chest tube with adjacent subcutaneous emphysema and tiny superior lateral pneumothorax. Slight right-sided volume loss with right-sided mediastinal shift. Left lung remains clear. Chest tube was placed to wall suction. Minimal leak noted. Reevaluated today on 02/24/22, patient is in the ICU as an overflow, he is doing well, relatively asymptomatic. Chest tube is off wall suction, no evidence of air leak. On room air O2 saturations 92-95% labs today are unremarkable including CBC which is normal, however his sodium is a bit low at 128. Patient is euvolemic, and considering his history of lung CTA, this could be a picture of SIADH. Objective - Vital Signs Vital signs: Vital Signs Temp 97.8 F 02/24/22 08:00 Pulse 78 02/24/22 08:00 Resp 21 02/24/22 08:00 BP 125/40 02/24/22 08:00 Pulse Ox 92 L 02/24/22 08:00 FiO2 Intake & Output 02/23/22 02/24/22 02/24/22 18:59 06:59 18:59 Intake Total 1750 600 550 Output Total 825 650 60 Balance 925 -50 490 Weight 73.6 kg Intake: IV 1450 550 50 Dextrose 5%-0.45% NaCl 1, 550 50 000 ml @ 50 mls/hr IV . Q20H [facility] Rx#:[id number] Intake, IV Titration 300 50 Amount Dextrose 5%-0.45% NaCl 1, 300 50 000 ml @ 50 mls/hr IV . Q20H [facility] Rx#:[id number] Oral 500 Output: Chest Tube Drainage 290 200 60 Right Chest Tube 290 200 60 Urine 335 450 Estimated Blood Loss 200 Other: Voiding Method Indwelling Catheter Urinal Urinal ABP, PAP, CO, CI - Last Documented Arterial Blood Pressure 96/57 - Exam Physical Exam: Revealed 62-year-old white male in no distress on room air. Head: Atraumatic, normocephalic. HEENT:[Neck is supple.] [No neck masses.] [No thyromegaly.] [No JVD.] Chest: [Clear throughout, no crackles, no rhonchi, no wheezes.] Right sided chest tube is noted. No air leak. Cardiac Exam: [Normal S1 and S2, no S3 gallop, no murmur.] Abdomen: [Soft, nontender, no megaly, no rebound, no guarding, normal bowel sounds.] Extremities: [No clubbing, no edema, no cyanosis.] Neurological Exam: [No focal neurologic deficit.] Alert oriented 3. Psychiatric: Normal mood affect and normal mental status examination. Skin: No rashes - Labs CBC & Chem 7: 02/24/22 05:16 02/24/22 05:16 Labs: Abnormal Lab Results - Last 24 Hours (Table) 02/23/22 02/24/22 02/24/22 Range/Units 13:22 05:16 05:16 WBC 10.8 H (3.8-10.6) k/uL RBC 3.73 L (4.30-5.90) m/uL Hgb 12.6 L (13.0-17.5) gm/dL Hct 36.3 L (39.0-53.0) % Sodium 128 L (137-145) mmol/L Glucose 104 H (74-99) mg/dL POC Glucose (mg/dL) 164 H (70-110) mg/dL Calcium 8.0 L (8.4-10.2) mg/dL Assessment and Plan Assessment: Impression: Right upper lobe squamous cell carcinoma diagnosed on 01/19, patient is status po st fiberoptic bronchoscopy,right thoracotomy, right upper lobectomy, mediastinal lymph node dissection, radioablation of the intercostal nerves. Postoperative day #1 History of underlying COPD FEV1 of 60% History of tobacco dependence of greater than 40 years. Benign essential hypertension Hyponatremia, likely secondary to SIADH may benefit from fluid restriction. We will continue to follow. Continue incentive spirometry. Chest tube would likely be removed in the next 24 hours. Ambulation. Time with Patient: Less than 30
[2022-02-24] MEDS: SENNOSIDES-DOCUSATE SODIUM 1 EACH TAB PO SCH (20:37)
[2022-02-25 03:50] VITALS: RESP 16
[2022-02-25] MEDS: KETOROLAC 15 MG/ML 1 ML VIAL IVP SCH ×2 (03:50→07:57)
[2022-02-25] MEDS: traMADol 50 MG TAB PO SCH (05:59)
[2022-02-25] MEDS: PANTOPRAZOLE 40 MG TABLET PO SCH (06:01)
--- NOTE | 2022-02-25 07:18 | XR ---
EXAMINATION TYPE: XR chest 2V DATE OF EXAM: 02/25/2022 6:59 AM COMPARISON: Chest radiographs from 02/24/2022 TECHNIQUE: XR chest 2V Portable AP radiograph of the chest. CLINICAL INDICATION:Male, 62 years old with history of post lobectomy; FINDINGS: Lungs/Pleura: There is no evidence of pleural effusion, focal consolidation, or pneumothorax. Pulmonary vascularity: Unremarkable. Heart/mediastinum: Cardiomediastinal silhouette is unremarkable. Musculoskeletal: No acute osseous pathology. Other findings: Subcutaneous emphysema scattered throughout the right chest wall. Lines/Tubes: Right thoracotomy tube is present with evidence of small pneumothorax. IMPRESSION: 1. Right thoracotomy tube with small pneumothorax. 2. Subcutaneous emphysema.
[2022-02-25] MEDS: HEPARIN SODIUM,PORCINE/PF 5,000 UNIT/0.5 ML SYRINGE SQ SCH (07:57)
[2022-02-25] MEDS: LISINOPRIL-HCTZ 10-12.5 MG 1 EACH TAB PO SCH (07:58)
[2022-02-25] MEDS: MULTIVITAMINS, THERA 1 EACH TAB PO SCH (07:58)
[2022-02-25 08:06] VITALS: BP 106/68; PULSE 74; TEMP 97.7
[2022-02-25 08:47] LABS: HCT 35.8 % (39.0-53.0); HGB 12.3 gm/dL (13.0-17.5); MCH 33.6 pg (25.0-35.0); MCHC 34.3 g/dL (31.0-37.0); Mean Platelet Volume 7.3; Platelet Count 190 k/uL (150-450); RBC 3.65 m/uL (4.30-5.90); RDW 11.9 % (11.5-15.5); WBC 7.7 k/uL (3.8-10.6)
--- NOTE | 2022-02-25 08:48 | P.PN ---
Subjective Progress Note Date: 02/25/22 Principal diagnosis: Squamous cell carcinoma right upper lobe. Past medical history significant for hypertension, current tobacco dependence, mild COPD, daily marijuana use, social EtOH, and family history of cancer. POD #2 fiberoptic bronchoscopy, right thoracotomy, right upper lobectomy, mediastinal lymph node dissection, cryoablation of the intercostal nerves. The patient was seen and examined in follow-up today 02/25/2022 at his bedside on the cardiac stepdown unit. He is sitting up to the bedside chair, is awake, alert and oriented 3, and is in no acute apparent distress. Denies any complaints of shortness of breath and states his pain is well controlled on his current pain medication regimen. Currently he rates his pain 2-3 out of 10 on the pain scale. Oxygen saturations are 96% on room air is achieving 2000 mL on his incentive spirometry. Right pleural chest tube remains in place to water seal. No air leak is present. Draining thin serosanguineous drainage with 10 mL output in the last 8 hours and 200 mL output in the last 24 hours. Remote telemetry showing normal sinus rhythm heart rate 69 BPM. Pathology revealed results remain pending. He's been afebrile last 24 hours. Chest x-ray was reviewed. Laboratory results remain pending. Objective - Vital Signs Vital signs: Vital Signs Temp 97.9 F 02/25/22 03:48 Pulse 79 02/25/22 03:48 Resp 16 02/25/22 03:48 BP 110/74 02/25/22 03:48 Pulse Ox 96 02/25/22 03:48 FiO2 21 02/24/22 20:09 Intake & Output 02/24/22 02/25/22 02/25/22 18:59 06:59 18:59 Intake Total 1448 118 Output Total 760 305 Balance 688 -187 Intake: IV 50 Dextrose 5%-0.45% NaCl 1, 50 000 ml @ 50 mls/hr IV . Q20H [facility] Rx#:[id number] Oral 1398 118 Output: Chest Tube Drainage 160 30 Right Chest Tube 160 30 Urine 600 275 Other: Voiding Method Urinal Urinal ABP, PAP, CO, CI - Last Documented Arterial Blood Pressure 96/57 - Exam CONSTITUTIONAL: Appears comfortable, cooperative, no acute distress, sitting up to the bedside chair. RESPIRATORY: Lungs sounds essentially clear throughout, diminished to his right lower lobe. Respirations are symmetrical and nonlabored. Currently on room air with oxygen saturation 96%. Able to achieve 2000 mL on his incentive spirometry. Strong cough. CARDIOVASCULAR: S1, S2 present. Regular rate and rhythm, sinus rhythm on telemetry. Palpable peripheral pulses bilaterally. No edema present. No calf pain or tenderness noted. SCDs present. GASTROINTESTINAL: Abdomen soft, nontender, nondistended. Active bowel sounds present 4 quadrants. Tolerating diet. GENITOURINARY: Continues to void. 275 mL of urine output in the last 8 hours. INTEGUMENTARY: Skin is warm and dry, no clubbing or cyanosis is present. Right chest thoracotomy incision well approximated and covered with dry intact dressing. NEUROLOGIC: Cranial nerves II through XII intact MUSKULOSKELETAL: Able to move all extremities, strength equal bilaterally, gait normal PSYCHIATRIC: Alert and oriented to person place and time, appropriate affect, intact judgment and insight INVASIVE LINES AND TUBES: Right pleural chest tube present and is to waterseal, no air leak present, 10 mL serosanguineous drainage overnight, 200 mL in the last 24 hours. - Allied health notes Allied health notes reviewed: nursing - Labs CBC & Chem 7: 02/25/22 08:06 02/24/22 05:16 - Imaging and Cardiology Chest x-ray: report reviewed, image reviewed Assessment and Plan Assessment: 1. Right upper lobe tumor, positive for squamous cell carcinoma status post EBUS, status post right upper lobectomy, final surgical pathology pending 2. History of hypertension 3. Current tobacco dependence, down to half to one pack per day, previously 2 packs per day for 40 years 4. Mild COPD, preoperative FEV1 64% of predicted post bronchodilator with DLCO 50% of predicted 5. Daily marijuana use 6. Social EtOH, denies history of withdrawal 7. Family history of cancer Plan: 1. We will remove his right pleural chest tube today. 2. Encourage incentive spirometry use 10 times every hour while awake. Bronchodilators per pulmonology. 3. Increase activity, ambulate as tolerated, out of bed for all meals. 4. Will monitor daily labs and chest x-rays. 5. GI/DVT prophylaxis. 6. Will monitor for final surgical pathology, remains pending. 7. Continue pain medication per current regimen. 8. The importance of risk modification including smoking cessation has been discussed with the patient. 9. Discharge planning is in place, anticipate discharge home in the next 24 hours. 10. More recommendations to follow based on patient's clinical course. Time with Patient: Greater than 30
[2022-02-25 08:57] LABS: African American GFR (CKD) >90 (>60 ml/min/1.73 sqM); Anion Gap 2 mmol/L; Blood Urea Nitrogen 15 mg/dL (9-20); Carbon Dioxide 27 mmol/L (22-30); Chloride 99 mmol/L (98-107); Glucose 166 mg/dL (74-99); Non-African American GFR(CKD) >90 (>60 ml/min/1.73 sqM); Sodium 128 mmol/L (137-145)
[2022-02-25 08:58] LABS: Calcium 7.9 mg/dL (8.4-10.2); Potassium 3.6 mmol/L (3.5-5.1)
[2022-02-25] MEDS: IPRATROPIUM-ALBUTEROL 3 ML NEB IH SCH (08:58)
--- NOTE | 2022-02-25 09:30 | P.DS ---
Providers Date of admission: 02/23/22 06:03 Expected date of discharge: 02/25/22 Attending physician: González Clifton Consults: 02/23/22 12:24 Consult Physician Routine Consulting Provider: Viktoria Meier Reason/Comments: post lobectomy Do you want consulting provider notified?: Yes Primary care physician: Stated None Hospital Course: FINAL DIAGNOSIS: 1. Right upper lobe tumor, positive for squamous cell carcinoma status post EBUS, status post right upper lobectomy, final surgical pathology pending 2. History of hypertension 3. Current tobacco dependence, down to half to one pack per day, previously 2 packs per day for 40 years 4. Mild COPD, preoperative FEV1 64% of predicted post bronchodilator with DLCO 50% of predicted 5. Daily marijuana use 6. Social EtOH, denies history of withdrawal 7. Family history of cancer PRINCIPAL PROCEDURE: 1. Fiberoptic bronchoscopy 2. Right thoracotomy, right upper lobectomy 3. Mediastinal lymph node dissection 4. Cryoablation of intercostal nerves HISTORY OF PRESENT ILLNESS: This is a 62-year-old gentleman who follows on an outpatient basis with Joan Bravo NP for his primary care and with Dr. Herndon for his pulmonary care. In August 2021 the patient underwent low-dose computed tomography scan due to his smoking history which demonstrated a new pulmonary mass in the right upper lobe. The pulmonary mass was fairly central and had some central cavitation. The patient did have a low-dose computed tomography scan skin screening of the chest one year prior that had not shown this mass. For further evaluation the patient underwent a PET scan which demonstrated a 2.1 cm hypermetabolic cavitary lesion right suprahilar level. A repeat PET scan was completed in January 2022 which demonstrated progressive disease with increase in metabolic activity of the perihilar cavitating lesion compared to his August 2021 exam. Subsequently he was seen by Dr. 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 Due to these findings he was referred to Dr. González Clifton from cardiothoracic surgery for further treatment recommendations including right upper lobectomy. Risks and benefits of surgery were discussed and knowing and understanding these risks the patient wished to proceed with the surgical option. HOSPITAL COURSE: The patient was brought to the hospital on 02/23/2022, taken to the preoperative area, prepared in the usual fashion and subsequently taken to the operating room were Dr. González Clifton performed a right thoracotomy, right upper lobectomy with mediastinal lymph node dissection. Upon completion of the surgery the patient was extubated and taken to the recovery room for further monitoring. He was eventually admitted to the intensive care unit for further monitoring and rehabilitation. On postoperative day #1 the patient was transferred to the cardiac stepdown unit for further monitoring and rehabilitation. He continued to recover and was felt stable for chest tube removal today on postoperative day #2. His oxygen has been titrated off, he has been tolerating oral diet, his pain is well controlled and he was ready to be discharged home on postoperative day #2. He has received written and verbal instructions regarding his medications, activity restrictions, signs and symptoms required physician O notification and his follow-up appointments. Plan - Discharge Summary Discharge Rx Participant: Yes New Discharge Prescriptions: Continue Albuterol Inhaler [Ventolin Hfa Inhaler] 2 puff INHALATION Q6H PRN PRN Reason: Shortness Of Breath Multivitamins, Thera [Multivitamin (formulary)] 1 tab PO DAILY Acetaminophen [Tylenol Arthritis] 650 mg PO DIRECTED PRN PRN Reason: Pain Lisinopril-Hctz 10-12.5 mg [Zestoretic 10-12.5] 1 tab PO DAILY Discharge Medication List Acetaminophen [Tylenol Arthritis] 650 mg PO DIRECTED PRN 01/18/22 [History] Albuterol Inhaler [Ventolin Hfa Inhaler] 2 puff INHALATION Q6H PRN 01/18/22 [History] Lisinopril-Hctz 10-12.5 mg [Zestoretic 10-12.5] 1 tab PO DAILY 01/18/22 [History] Multivitamins, Thera [Multivitamin (formulary)] 1 tab PO DAILY 01/18/22 [History] Follow up Appointment(s)/Referral(s): González Clifton MD [STAFF PHYSICIAN] - 03/23/22 1:15 pm None,Stated [Primary Care Provider] - As Needed (Follow up with your primary care physician as needed) Constantino Herndon MD [STAFF PHYSICIAN] - 03/22/22 10:00 am Activity/Diet/Wound Care/Special Instructions: DISCHARGE INSTRUCTIONS: 1. No driving for 2 weeks, or until physician gives their ok. 2. No lifting, pushing, or pulling more than 10 pounds for 2 weeks. The physician will advise of any restriction changes. 3. Continue pain control per as needed orders. Alternate acetaminophen (Tylenol) and ibuprofen (Motrin/Advil) for pain. 4. Continue with incentive spirometry and splinting until otherwise directed by the physician. 5. Leave chest tube dressing for 48 hours. After that, remove all dressings and shower daily. 6. Routine incision care. No powders, lotions, ointments on incisions. 7. Please call surgeon/PRODUCTION UNDERWRITER for temp greater than 101 F or purulent drainage from incisions. 8. Smoking cessation counseling and program information provided. Discharge Disposition: HOME SELF-CARE
== END 2022-02-25 09:53 | disposition home or self-care (01) | DRG 164 ==
LOC: 2ORMAIN 06:03 → 2SICU 12:13 → 3SCARD 02-24 14:28
PROVIDERS: ADMIT Thoracic Surgery (Cardiothoracic Vascular Surgery); ATTEND Thoracic Surgery (Cardiothoracic Vascular Surgery)
PROC: 07B70ZX Excision of Thorax Lymphatic, Open Approach, Diagnostic (ICD-10-PCS; 2022-02-23)
PROC: 01580ZZ Destruction of Thoracic Nerve, Open Approach (ICD-10-PCS; 2022-02-23)
PROC: 0BJ08ZZ Inspection of Tracheobronchial Tree, Via Natural or Artificial Opening Endoscopic (ICD-10-PCS; 2022-02-23)
PROC: 0BTC0ZZ Resection of Right Upper Lung Lobe, Open Approach (ICD-10-PCS; principal; 2022-02-23 08:00)
DX: C34.11 Malignant neoplasm of upper lobe, right bronchus or lung (principal); E22.2 Syndrome of inappropriate secretion of antidiuretic hormone; J93.9 Pneumothorax, unspecified; J98.2 Interstitial emphysema; J44.9 Chronic obstructive pulmonary disease, unspecified; I10 Essential (primary) hypertension; F17.210 Nicotine dependence, cigarettes, uncomplicated; J98.4 Other disorders of lung; Z87.01 Personal history of pneumonia (recurrent); Z86.19 Personal history of other infectious and parasitic diseases; Z80.1 Family history of malignant neoplasm of trachea, bronchus and lung; Z79.899 Other long term (current) drug therapy; Z88.8 Allergy status to other drugs, medicaments and biological substances
CPT/HCPCS: 64461; 71045; 71046; 80048; 85025; 85027; 86850; 86900; 86901; 88305; 88309; 88331; 94760

== ENCOUNTER → 2022-06-26 | Outpatient (CLI) | payer OTHER ==
[2022-06-26 14:46] LABS: African American GFR (CKD) >90 (>60 ml/min/1.73 sqM); Blood Urea Nitrogen 19 mg/dL (9-20); Non-African American GFR(CKD) >90 (>60 ml/min/1.73 sqM)
--- NOTE | 2022-06-27 13:38 | CT ---
EXAMINATION TYPE: CT ChestAbdPelvis w con CT DLP: 746.2 mGycm, Automated exposure control for dose reduction was used. DATE OF EXAM: 06/26/2022 4:12 PM COMPARISON: Pet/CT 02/03/2022 CLINICAL INDICATION:Male, 62 years old with history of C34.11, Non small cell Lung CA. Left upper lob ectomy. Technique: Multiple axial images of the chest, abdomen, and pelvis were obtained. Two-dimensional cor onal and sagittal reconstructions were obtained. Contrast used:100cc mL of Isovue 300 with IV Contrast, Oral contrast used: with Oral Contrast Findings: CHEST: LUNGS/ PLEURA: Postsurgical changes to the right lung. There is decrease in soft tissue within the ri ght pulmonary hilum area around the airways. The soft tissue was FDG avid on prior PET/CT. No focal c onsolidation. No new suspicious nodules. AIRWAY: Patent and unremarkable. HEART: Size within normal limits. Mild atherosclerosis of the arterial vasculature. MEDIASTINUM: No gross evidence of adenopathy. VASCULATURE: No aortic aneurysm. MUSCULOSKELETAL: No acute osseous abnormalities. SOFT TISSUES/LYMPH NODES: Unremarkable. LOWER NECK: No significant findings. ABDOMEN: ABDOMEN LIVER: Unremarkable GALLBLADDER AND BILE DUCTS: Unremarkable. PANCREAS: Unremarkable. SPLEEN: Scattered calcified granulomas. ADRENAL GLANDS: Unremarkable. KIDNEYS AND URETERS: No evidence of hydronephrosis or renal calculus. The ureters are unremarkable. PELVIS BLADDER: Unremarkable REPRODUCTIVE: Unremarkable. ABDOMEN & PELVIS STOMACH AND BOWEL: No evidence of bowel obstruction. PERITONEUM: No evidence of pneumoperitoneum or free fluid. VASCULATURE: No evidence of aortic aneurysm. MUSCULOSKELETAL: No acute osseous abnormalities LYMPH NODES: No gross evidence for lymphadenopathy. SOFT TISSUE/ABDOMINAL WALL: Bilateral fat-containing inguinal hernias. IMPRESSION: Post surgical changes to the right lung. Interval decrease in soft tissue near the right pulmonary hi lum when comparing to PET/CT, this soft tissue was FDG avid on 02/03/2022. Consider follow-up PET/CT for metabolic activity comparison. No evidence for metastatic disease within the abdomen or pelvis or in definitive osseous metastatic f ocus visualized.
== END | disposition home or self-care (01) ==
LOC: RADCTMAIN 14:00
PROVIDERS: ATTEND Radiology Radiation Oncology
DX: C34.11 Malignant neoplasm of upper lobe, right bronchus or lung (principal); J98.4 Other disorders of lung
CPT/HCPCS: 82565; 84520; 71260; 74177; 36415; Q9967

== ENCOUNTER → 2022-07-05 | Outpatient (CLI) | payer OTHER ==
[2022-07-06 02:31] LABS: T4, Free (Free Thyroxine) 1.18 ng/dL (0.800-1.800)
== END | disposition home or self-care (01) ==
LOC: LABWHC1 13:49
PROVIDERS: ATTEND Radiology Radiation Oncology
DX: C34.11 Malignant neoplasm of upper lobe, right bronchus or lung (principal); C77.1 Secondary and unspecified malignant neoplasm of intrathoracic lymph nodes
CPT/HCPCS: 36415; 84439; 84443; 84481

== ENCOUNTER → 2023-08-10 | Outpatient (CLI) | payer OTHER ==
--- NOTE | 2023-08-12 16:10 | PE ---
EXAMINATION TYPE: PET CT fusion skull to thigh DATE OF EXAM: 08/10/2023 CLINICAL INDICATION:Male, 63 years old with history of C34.11 LUNG CANCER; TECHNIQUE: Following the intravenous administration of 12.66 mCi of F-18 FDG, whole body images are performed from the skull base to the midthigh. Images are reviewed on the computer in the coronal, axial, and sagittal planes. Reconstructed rotating images are created on independent workstation and reviewed on the computer. A non-contrast CT is performed in conjunction with the PET scan. Glucose level 92 mg/dL CT DLP: 256 mGycm, Automated exposure control for dose reduction was used. COMPARISON: CT 06/26/2022 07/11/2023., PET/CT 02/03/2022, MRI: None FINDINGS: Mediastinal SUV mean is 2.1. Hepatic parenchyma SUV mean is 2.0. SKULL BASE AND NECK: No suspicious radiotracer activity. CHEST, MEDIASTINUM, AND HILAR REGION: * There is an area of consolidation on the right anterior pulmonary hilum with extension away toward s the periphery with suspected underlying superimposed atelectasis changes. Max SUV 4.7. * Nonenlarged lymph nodes within the mediastinum there is at least 2 with mild uptake in the right paratracheal region max SUV 2.7 and 2.7. * Right lower lobe peripheral FDG activity, no definitive correlate on CT imaging max SUV 4.2. ABDOMEN AND PELVIS: No suspicious radiotracer activity. OSSEOUS STRUCTURES: No suspicious radiotracer activity. Radiation changes to the spine at the level of prior tumor. OTHER CT: Atherosclerosis of the arterial vasculature including the carotid bifurcations and coronary arteries. Heart is mildly enlarged for size. Hepatic steatosis. Calcified granulomas within the sple en. IMPRESSION: * Findings suspicious for persistent/residual malignancy in the right perihilar region. 2 nonenlarge d lymph nodes with mild uptake possibly representing early metastatic disease. * Indeterminate activity in the right lower lobe laterally, this does not definitively have a CT cor relate there is a calcification in the nearby vicinity. Unclear if there is misregistration artifact. No nearby suspicious lesion definitively visualized. For this lesion surveillance is recommended.
== END | disposition home or self-care (01) ==
LOC: RADPETMAIN 12:18
PROVIDERS: ATTEND Internal Medicine Hematology & Oncology
DX: C34.11 Malignant neoplasm of upper lobe, right bronchus or lung (principal); E03.9 Hypothyroidism, unspecified; G89.22 Chronic post-thoracotomy pain; I10 Essential (primary) hypertension
CPT/HCPCS: 78815; A9552

== ENCOUNTER → 2023-11-30 | Outpatient (CLI) | payer OTHER ==
[2023-11-30 11:58] LABS: African American GFR (CKD) >90 (>60 ml/min/1.73 sqM); Blood Urea Nitrogen 18 mg/dL (9-20); Non-African American GFR(CKD) >90 (>60 ml/min/1.73 sqM)
--- NOTE | 2023-11-30 12:52 | CT ---
EXAMINATION TYPE: CT chest w con DATE OF EXAM: 11/30/2023 COMPARISON: 06/26/2022 HISTORY: lung ca CT DLP: 368 mGycm Automated exposure control for dose reduction was used. TECHNIQUE: CT scan of the chest is performed with IV Contrast, patient injected with 100 mL of Isovue 370. MIP Images are created on CT scanner and reviewed. 3D reconstructed images are created on an independent workstation and reviewed. FINDINGS: There are marked emphysematous changes. There has been interval development of a focal soft tissue density in the right hilar region with sca ttered calcifications raising the question of recurrent neoplasm or post treatment or postsurgical ch anges. There is apparent partial right upper lobe lobectomy. In addition there is a focal area of par tially consolidative and interstitial density in the right lower lobe. The left lung is clear. There is no definite mediastinal, hilar or axillary adenopathy. The osseous structures are intact there are remote left rib healed fractures. Limited scanning through the upper abdomen reveals no abnormality. There are no focal osseous abnormalities. IMPRESSION: 1. Partial right upper lobe lobectomy. 2. New partially consolidated and interstitial infiltrate in the right lower lobe region the question of recurrent disease, pneumonia or post radiation changes. 3. Increased density and calcification the perihilar region again possibly related to surgery and gisselle or treatment. Short-term follow-up is recommended. [facility], , 11/30/2023 12:49 PM
== END | disposition home or self-care (01) ==
LOC: RADCTMAIN 11:10
PROVIDERS: ATTEND Internal Medicine Hematology & Oncology
CPT/HCPCS: 36415; 71260; 82565; 84520

== ENCOUNTER → 2024-07-04 | Outpatient (CLI) | payer OTHER ==
--- NOTE | 2024-07-04 15:48 | PE ---
EXAMINATION TYPE: PET CT fusion skull to thigh DATE OF EXAM: 07/04/2024 COMPARISON: Most recent PET CT August 10, 2023 and older studies. HISTORY: C34.11 MALIGNANT NEOPLASM OF UPPER LOBE, RIGHT BRO TECHNIQUE: Following the intravenous administration of 11.61 mCi of F-18 FDG, whole body images are performed from the skull base to the midthigh. Images are reviewed on the computer in the coronal, a xial, and sagittal planes. Reconstructed rotating images are created on independent workstation and reviewed on the computer. A localization and attenuation correction CT is performed in conjunction with the PET scan. Blood glucose level equals 108 SCAN: Subsequent Scan FINDINGS: SKULL BASE AND NECK: No new areas of abnormal hypermetabolic uptake. CHEST, MEDIASTINUM, AND HILAR REGION: Mild to moderate underlying emphysematous change is redemonstra yesica. Some right-sided volume loss is redemonstrated. Persistent posttreatment change with irregular c onsolidation at the right hilar level with some surrounding groundglass opacity with mild hypermetabo lic uptake extending posteriorly, max SUV is 5.55 on axial image 105 . No new hypermetabolic lymph nodes or new suspicious areas of abnormal hypermetabolic uptake ABDOMEN AND PELVIS: No new Hypermetabolic adrenal masses. Normal excretion. No new areas of abnormal hypermetabolic uptake. OSSEOUS STRUCTURES: No new areas of abnormal hypermetabolic uptake. OTHER CT: Dependent opacification or fluid in the left maxillary sinus is present. There is calcified nodule or benign granuloma right lower lung axial image 140. Persistent calcified right hilar and rome bcarinal lymph nodes. Moderate coronary artery calcification redemonstrated. Calcifications throughou t the spleen again seen. Slightly enlarged prostate consistent with BPH. IMPRESSION: Suspect posttreatment change to the right lung. Some residual active neoplasm not entirel y excluded. This area needs attention on follow up PET-CT. No new areas of abnormal hypermetabolic u ptake to suggest active metastatic malignant recurrence. [facility], , 07/04/2024 3:45 PM
== END | disposition home or self-care (01) ==
LOC: RADPETMAIN 12:16
PROVIDERS: ATTEND Internal Medicine Hematology & Oncology
DX: C34.11 Malignant neoplasm of upper lobe, right bronchus or lung (principal); Z98.890 Other specified postprocedural states
CPT/HCPCS: 78815; A9552

== ENCOUNTER → 2024-08-19 | Outpatient (CLI) | payer OTHER ==
--- NOTE | 2024-08-19 10:09 | CT ---
EXAMINATION TYPE: CT soft tissue neck w con CT DLP: 309.2 mGycm, Automated exposure control for dose reduction was used. DATE OF EXAM: 08/19/2024 9:56 AM COMPARISON: PET CT 07/04/2024, CT chest 11/30/2023. 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 Axial sections with coronal and sagittal reformats were obtained. FINDINGS: Brain: Visualized portions are grossly unremarkable. Sinuses: Moderate mucosal thickening of the left maxillary sinus with air-fluid level. The remaining visualized paranasal sinuses are clear. The bilateral mastoid air cells are clear. Suprahyoid Neck: The oropharynx, oral cavity, parapharyngeal and retropharyngeal spaces are clear and symmetric. The nasopharynx is unremarkable. Infrahyoid Neck: The hypopharynx, and supraglottic area are clear and symmetric. There is some circu mferential wall thickening of the region of the false vocal cords. Parotid Glands: Unremarkable. Submandibular Glands: Unremarkable. Musculoskeletal: No acute osseous pathology. No aggressive osseous lesion. Lymph nodes: No pathologically enlarged lymph nodes greater than 1 cm short axis identified.. Vascular structures: Visualized major arteries are patent without evidence of aneurysm. Thoracic Inlet/airway: Airway is patent. Centrilobular emphysematous changes. Mild biapical pleural-p arenchymal scarring. Partial visualization of right hilar soft tissue likely representing posttreatme nt change with residual malignancy not excluded. Postsurgical changes right upper lobectomy. Soft tissues/Thyroid: Thyroid and remainder of the soft tissues are unremarkable. Other: none. IMPRESSION: 1. Circumferential thickening of the region of the false vocal cords which may represent reported la ryngeal cancer. 2. No pathologically enlarged lymph nodes identified. 3. Background emphysematous changes with posttreatment changes of the right hilar region with residu al soft tissue which may represent posttreatment changes with residual malignancy not excluded. 4. Moderate left maxillary sinus mucosal thickening with air-fluid level. Correlate clinically for a cute sinusitis. [facility], , 08/19/2024 10:07 AM
--- NOTE | 2024-08-19 14:56 | FL ---
EXAMINATION TYPE: FL barium swallow w video DATE OF EXAM: 08/19/2024 MODIFIED SWALLOW / DEGLUTITION STUDY CLINICAL HISTORY: Dysphagia. Throat cancer diagnosed 2 weeks earlier TECHNIQUE: Deglutition study is performed utilizing thin liquid barium, barium thick pudding, and ba rium coated cracker. 1 minute of fluoro time and 4 images obtained. Total dose area product (DAP) i n uGy*m?, mGy*cm? (or similar): n/p COMPARISON: Neck CT same day FINDINGS: The oral and pharyngeal phases show satisfactory initiation and propagation with all modali ties tested. Normal mastication is seen with solid modalities tested. There is no evidence of penet ration or aspiration with any modality tested. [id number] pharyngeal residue was appreciated. IMPRESSION: No aspiration observed. Please refer to speech therapist notes for further details if ne cessary. [facility], , 08/19/2024 2:53 PM
== END | disposition home or self-care (01) ==
LOC: RADCTMAIN 09:39
PROVIDERS: ATTEND Otolaryngology
DX: C32.9 Malignant neoplasm of larynx, unspecified (principal); J34.89 Other specified disorders of nose and nasal sinuses; J43.9 Emphysema, unspecified
CPT/HCPCS: 92611; 74230; 70491; Q9967